=== PATIENT | female | born 1960 ===

== ENCOUNTER 2018-03-26 08:46 | Inpatient (IN) | payer BC, OTHER ==
[~2018-03-26] VITALS: Ht 172.7 cm; Wt 79.0 kg
[~2018-03-26 08:46] MED LIST: BACITRACIN 50,000 UNIT ONE; BUPIVACAINE/PF-EPI 0.5% 1:200K ONE; CETI10TA24 PO; DRON5CAP PO; DULO30CA2 PO; ERGO500017 PO; FURO20TA3 PO; GABA300C10 PO; LEVO75TA5 PO; LOSA100T14 PO; MELO15TA24 PO; OMEP20TA62 PO; SPIR25TA5 PO; THROMBIN 5,000 UNIT VIAL TP ONE; TOPI100T8 PO; VANCOMYCIN 1,000 MG ONE
[2018-03-26] MEDS ORDERED: LACTATED RINGERS 1,000 ML IV SCH (09:53)
[2018-03-26] MEDS ORDERED: OXYC-307 PO (09:55)
[2018-03-26] MEDS ORDERED: LIDOCAINE-MPF 1%, 2ML INFIL ONE (10:00)
[2018-03-26 10:27] VITALS: BP 138/88
[2018-03-26] MEDS ORDERED: FENTANYL PF 100 MCG/2ML ONE ×3 (10:44→15:48)
[2018-03-26] MEDS ORDERED: MIDAZOLAM 1 MG/ML, 2ML ONE (10:45)
[2018-03-26] MEDS ORDERED: PROPOFOL 10 MG/ML, 20ML ONE (11:22)
[2018-03-26] MEDS ORDERED: CEFAZOLIN 1,000 MG ONE (11:22)
[2018-03-26] MEDS ORDERED: SUGAMMADEX 200 MG/2 ML IVPush ONE ×2 (11:22→12:00)
[2018-03-26] MEDS ORDERED: ONDANSETRON 2MG/ML, 2ML ONE (11:22)
[2018-03-26] MEDS ORDERED: DEXAMETHASONE 4 MG/ML, 1ML ONE (11:22)
[2018-03-26] MEDS ORDERED: METOCLOPRAMIDE 5 MG/ML, 2ML ONE (11:22)
[2018-03-26] MEDS ORDERED: ROCURONIUM 10MG/ML,5ML ONE (11:22)
[2018-03-26] MEDS ORDERED: VANCOMYCIN 1,000 MG ONE ×2 (13:04→13:55)
[2018-03-26] MEDS ORDERED: LIDOCAINE 1%-EPI 1:100K, 30ML ONE (15:03)
[2018-03-26] MEDS ORDERED: OXYcodone 5 MG/5 ML ORAL.SOL UDC ONE (15:48)
[2018-03-26] MEDS ORDERED: HYDROmorphone 2 MG/ML, 1ML ONE (15:48)
[2018-03-26] MEDS: FENTANYL PF 100 MCG/2ML IV PRN ×2 (15:55→16:08)
[2018-03-26] MEDS: HYDROmorphone 1 MG/ML, 1ML IV PRN ×2 (15:56→16:15)
[2018-03-26] MEDS ORDERED: MIDAZOLAM 1 MG/ML, 2ML IV PRN ×2 (16:00→18:00)
[2018-03-26] MEDS ORDERED: ONDANSETRON 2MG/ML, 2ML IVPush PRN ×2 (16:00→18:00)
[2018-03-26] MEDS ORDERED: LABETALOL 5MG/ML, 20ML IV PRN ×3 (16:00→18:00)
[2018-03-26] MEDS ORDERED: OXYcodone 5 MG/5 ML ORAL.SOL UDC PO PRN ×3 (16:00→18:00)
[2018-03-26] MEDS ORDERED: MEPERIDINE/PF 25MG/0.5ML IVPush PRN ×3 (16:00→18:00)
[2018-03-26] MEDS ORDERED: DIAZEPAM 5 MG/ML, 10ML VIAL IV PRN (16:30)
[2018-03-26] MEDS ORDERED: DIAZEPAM 5 MG/ML, 2ML IV PRN ×2 (16:30→18:00)
[2018-03-26] MEDS ORDERED: hydrALAzine 20 MG/ML, 1ML ONE (16:57)
[2018-03-26] MEDS ORDERED: hydrALAzine 20 MG/ML, 1ML IV PRN (17:00)
[2018-03-26] MEDS ORDERED: MEPERIDINE/PF 25MG/ML,1ML ONE (17:07)
[2018-03-26] MEDS ORDERED: FENTANYL PF 100 MCG/2ML IV PRN ×2 (18:00)
[2018-03-26] MEDS ORDERED: HYDROmorphone 1 MG/ML, 1ML IV PRN ×2 (18:00)
[2018-03-26] MEDS ORDERED: MAGNESIUM HYDROXIDE 8%, 30ML UDC PO PRN (18:00)
[2018-03-26] MEDS ORDERED: ONDANSETRON 2MG/ML, 2ML IV PRN (18:00)
[2018-03-26] MEDS ORDERED: BISACODYL 10 MG SUPP PR PRN (18:00)
[2018-03-26] MEDS ORDERED: PROMETHAZINE 25 MG/ML, 1ML IM PRN (18:00)
[2018-03-26] MEDS ORDERED: morphine SULFATE 10 MG/ML, 1ML IV PRN (18:00)
[2018-03-26] MEDS: D5%-0.9% NACL+KCL 20MEQ 1,000 ML IV SCH (18:12)
[2018-03-26] MEDS: OMEPRAZOLE 20 MG CAPSULE.DR PO SCH (18:12)
[2018-03-26 18:39] VITALS: BP 137/84
[2018-03-26] MEDS: SENNA/DOCUSATE TABLET PO SCH (20:49)
[2018-03-26] MEDS: LOSARTAN 50MG TABLET PO SCH (20:49)
[2018-03-26] MEDS: GABAPENTIN 400 MG CAPSULE PO SCH (20:49)
[2018-03-26] MEDS: TOPIRAMATE 100 MG TABLET PO SCH (20:49)
[2018-03-26] MEDS: HYDROcodone/APAP 5/325 TABLET PO PRN (22:54)
[2018-03-26 23:09] VITALS: BP 107/77
[2018-03-26] MEDS: CEFAZOLIN PMX 1GM/50ML 50 ML IVPB SCH (23:33)
[2018-03-27 03:58] VITALS: BP 97/57
[2018-03-27] MEDS: D5%-0.9% NACL+KCL 20MEQ 1,000 ML IV SCH ×2 (04:15→14:00)
[2018-03-27] MEDS: DIAZEPAM 5 MG TABLET PO PRN ×2 (04:15→17:32)
[2018-03-27] MEDS: LEVOTHYROXINE 75 MCG TABLET PO SCH (05:35)
[2018-03-27] MEDS: GABAPENTIN 400 MG CAPSULE PO SCH ×4 (05:36→20:08)
[2018-03-27 05:42] LABS: BASOPHILS # (AUTO) 0.03 x10^3/uL (0-0.1); BASOPHILS % (AUTO) 0 % (0-1); EOSINOPHILS % (AUTO) 0 % (1-7); LYMPHOCYTES # (AUTO) 1.55 x10^3/uL (1-3.4); LYMPHOCYTES % (AUTO) 17 % (22-44); MD NO; MEAN CORPUSCULAR HEMOGLOBIN 29.9 pg (27.0-34.8); MEAN CORPUSCULAR HGB CONC 33.3 g/dL (32.4-35.8); MEAN CORPUSCULAR VOLUME 89.8 fL (80-100); MEAN PLATELET VOLUME 9.6 fL (7.4-10.4); MONOCYTES # (AUTO) 0.63 x10^3/uL (0.2-0.8); MONOCYTES % (AUTO) 7 % (2-9); NEUTROPHILS # (AUTO) 7.01 x10^3/uL (1.8-6.8); NEUTROPHILS % (AUTO) 76 % (42-75); PLATELET COUNT 273 x10^3/uL (130-400); RED BLOOD COUNT 3.98 x10^6/uL (3.82-5.3); RED CELL DISTRIBUTION WIDTH 13.7 % (9.6-15.2)
[2018-03-27 05:53] LABS: ANION GAP 7 mmol/L (5-15); CALCIUM 8.7 mg/dL (8.5-10.1); CHLORIDE 114 mmol/L (98-107)
[2018-03-27 05:55] LABS: CREATININE 0.72 mg/dL (0.55-1.02)
[2018-03-27 07:19] VITALS: BP 129/73
[2018-03-27] MEDS: DULOXETINE 30 MG CAPSULE.DR PO SCH (07:26)
[2018-03-27] MEDS: TOPIRAMATE 100 MG TABLET PO SCH ×2 (07:26→20:09)
[2018-03-27] MEDS: FUROSEMIDE 40 MG TABLET PO SCH (07:26)
[2018-03-27] MEDS: SENNA/DOCUSATE TABLET PO SCH ×2 (07:26→20:09)
[2018-03-27] MEDS: SPIRONOLACTONE 25 MG TABLET PO SCH (07:26)
[2018-03-27] MEDS: CEFAZOLIN PMX 1GM/50ML 50 ML IVPB SCH (07:26)
[2018-03-27] MEDS: OMEPRAZOLE 20 MG CAPSULE.DR PO SCH ×2 (07:26→17:05)
[2018-03-27] MEDS: OXYcodone/APAP 5/325MG TABLET PO PRN (08:09)
[2018-03-27 12:59] VITALS: BP 122/84
[2018-03-27] MEDS: HYDROcodone/APAP 5/325 TABLET PO PRN ×2 (15:18→20:10)
[2018-03-27 18:49] VITALS: BP 119/71
[2018-03-27] MEDS ORDERED: TOPIRAMATE 25 MG TABLET ONE ×2 (20:02→20:04)
[2018-03-27] MEDS: LOSARTAN 50MG TABLET PO SCH (20:10)
[2018-03-28] MEDS: HYDROcodone/APAP 5/325 TABLET PO PRN ×6 (00:01→20:16)
[2018-03-28] MEDS: DIAZEPAM 5 MG TABLET PO PRN ×4 (00:02→18:10)
[2018-03-28 02:36] VITALS: BP 113/73
[2018-03-28] MEDS: GABAPENTIN 400 MG CAPSULE PO SCH ×4 (04:03→20:16)
[2018-03-28 06:09] LABS: BASOPHILS # (AUTO) 0.03 x10^3/uL (0-0.1); BASOPHILS % (AUTO) 0 % (0-1); EOSINOPHILS # (AUTO) 0.03 x10^3/uL (0-0.4); EOSINOPHILS % (AUTO) 0 % (1-7); LYMPHOCYTES # (AUTO) 1.97 x10^3/uL (1-3.4); LYMPHOCYTES % (AUTO) 27 % (22-44); MD NO; MEAN CORPUSCULAR HEMOGLOBIN 29.5 pg (27.0-34.8); MEAN CORPUSCULAR HGB CONC 33.1 g/dL (32.4-35.8); MEAN CORPUSCULAR VOLUME 89.1 fL (80-100); MEAN PLATELET VOLUME 9.6 fL (7.4-10.4); MONOCYTES # (AUTO) 0.64 x10^3/uL (0.2-0.8); MONOCYTES % (AUTO) 9 % (2-9); NEUTROPHILS # (AUTO) 4.51 x10^3/uL (1.8-6.8); NEUTROPHILS % (AUTO) 63 % (42-75); PLATELET COUNT 254 x10^3/uL (130-400); RED BLOOD COUNT 4.06 x10^6/uL (3.82-5.3); RED CELL DISTRIBUTION WIDTH 13.9 % (9.6-15.2)
[2018-03-28 06:19] LABS: CALCIUM 8.6 mg/dL (8.5-10.1); CHLORIDE 110 mmol/L (98-107)
[2018-03-28] MEDS: LEVOTHYROXINE 75 MCG TABLET PO SCH (06:20)
[2018-03-28 06:22] LABS: ANION GAP 8 mmol/L (5-15); CREATININE 0.62 mg/dL (0.55-1.02)
[2018-03-28 07:30] VITALS: BP 115/72
[2018-03-28] MEDS: OMEPRAZOLE 20 MG CAPSULE.DR PO SCH ×2 (07:36→16:16)
[2018-03-28] MEDS: DULOXETINE 30 MG CAPSULE.DR PO SCH (08:27)
[2018-03-28] MEDS: FUROSEMIDE 40 MG TABLET PO SCH (08:27)
[2018-03-28] MEDS: TOPIRAMATE 100 MG TABLET PO SCH ×2 (08:27→20:17)
[2018-03-28] MEDS: SENNA/DOCUSATE TABLET PO SCH ×2 (08:27→20:16)
[2018-03-28] MEDS: SPIRONOLACTONE 25 MG TABLET PO SCH (08:27)
[2018-03-28] MEDS: D5%-0.9% NACL+KCL 20MEQ 1,000 ML IV SCH ×3 (09:39→20:00)
[2018-03-28] MEDS ORDERED: ONDANSETRON ODT 4 MG ONE (10:56)
[2018-03-28] MEDS: ONDANSETRON ODT 4 MG PO PRN (10:57)
[2018-03-28 12:42] VITALS: BP 105/65
[2018-03-28] MEDS ORDERED: SUMATRIPTAN 25 MG TABLET PO PRN (18:00)
[2018-03-28 18:56] VITALS: BP 103/72
[2018-03-28] MEDS: LOSARTAN 50MG TABLET PO SCH (20:17)
[2018-03-29] MEDS: DIAZEPAM 5 MG TABLET PO PRN ×4 (00:47→20:29)
[2018-03-29] MEDS: HYDROcodone/APAP 5/325 TABLET PO PRN ×5 (00:48→20:29)
[2018-03-29 01:01] VITALS: BP 111/68
[2018-03-29] MEDS: D5%-0.9% NACL+KCL 20MEQ 1,000 ML IV SCH ×2 (05:39→14:30)
[2018-03-29] MEDS: LEVOTHYROXINE 75 MCG TABLET PO SCH (05:42)
[2018-03-29] MEDS: GABAPENTIN 400 MG CAPSULE PO SCH ×4 (05:42→20:29)
[2018-03-29] MEDS: OMEPRAZOLE 20 MG CAPSULE.DR PO SCH ×2 (07:27→15:53)
[2018-03-29 07:34] VITALS: BP 99/63
[2018-03-29] MEDS: SPIRONOLACTONE 25 MG TABLET PO SCH (09:17)
[2018-03-29] MEDS: DULOXETINE 30 MG CAPSULE.DR PO SCH (09:17)
[2018-03-29] MEDS: TOPIRAMATE 100 MG TABLET PO SCH ×2 (09:17→20:29)
[2018-03-29] MEDS: FUROSEMIDE 40 MG TABLET PO SCH (09:17)
[2018-03-29] MEDS: SENNA/DOCUSATE TABLET PO SCH ×2 (09:17→20:29)
[2018-03-29 14:27] VITALS: BP 110/64
[2018-03-29 19:37] VITALS: BP 124/83
[2018-03-29] MEDS: LOSARTAN 50MG TABLET PO SCH (20:29)
[2018-03-30 01:53] VITALS: BP 102/67
[2018-03-30] MEDS: D5%-0.9% NACL+KCL 20MEQ 1,000 ML IV SCH ×3 (02:00→22:00)
[2018-03-30] MEDS: HYDROcodone/APAP 5/325 TABLET PO PRN ×3 (02:11→11:06)
[2018-03-30] MEDS: DIAZEPAM 5 MG TABLET PO PRN ×3 (02:11→20:18)
[2018-03-30] MEDS: GABAPENTIN 400 MG CAPSULE PO SCH ×4 (06:25→20:17)
[2018-03-30] MEDS: LEVOTHYROXINE 75 MCG TABLET PO SCH (06:25)
[2018-03-30 07:50] VITALS: BP 103/65
[2018-03-30] MEDS ORDERED: TOPIRAMATE 25 MG TABLET ONE (08:32)
[2018-03-30] MEDS: DULOXETINE 30 MG CAPSULE.DR PO SCH (08:34)
[2018-03-30] MEDS: SPIRONOLACTONE 25 MG TABLET PO SCH (08:35)
[2018-03-30] MEDS: FUROSEMIDE 40 MG TABLET PO SCH (08:35)
[2018-03-30] MEDS: TOPIRAMATE 100 MG TABLET PO SCH ×2 (08:36→20:17)
[2018-03-30] MEDS: OMEPRAZOLE 20 MG CAPSULE.DR PO SCH ×2 (08:36→16:24)
[2018-03-30] MEDS: SENNA/DOCUSATE TABLET PO SCH ×2 (08:36→20:18)
[2018-03-30 15:57] VITALS: BP 115/71
[2018-03-30] MEDS: OXYcodone/APAP 5/325MG TABLET PO PRN ×2 (17:44→23:49)
[2018-03-30] MEDS: ONDANSETRON ODT 4 MG PO PRN (17:44)
[2018-03-30] MEDS: LOSARTAN 50MG TABLET PO SCH (20:17)
[2018-03-30 20:31] VITALS: BP 117/71
[2018-03-31 01:56] VITALS: BP 115/71
[2018-03-31] MEDS: DIAZEPAM 5 MG TABLET PO PRN ×2 (05:39→14:35)
[2018-03-31] MEDS: GABAPENTIN 400 MG CAPSULE PO SCH ×4 (05:39→19:47)
[2018-03-31] MEDS: LEVOTHYROXINE 75 MCG TABLET PO SCH (05:39)
[2018-03-31] MEDS: OMEPRAZOLE 20 MG CAPSULE.DR PO SCH ×2 (07:14→16:11)
[2018-03-31] MEDS: OXYcodone/APAP 5/325MG TABLET PO PRN ×3 (07:14→19:48)
[2018-03-31] MEDS: D5%-0.9% NACL+KCL 20MEQ 1,000 ML IV SCH ×2 (07:54→17:08)
[2018-03-31 07:58] VITALS: BP 109/71
[2018-03-31] MEDS: SENNA/DOCUSATE TABLET PO SCH ×2 (09:00→19:48)
[2018-03-31] MEDS ORDERED: TOPIRAMATE 25 MG TABLET ONE (09:14)
[2018-03-31] MEDS: DULOXETINE 30 MG CAPSULE.DR PO SCH (09:16)
[2018-03-31] MEDS: SPIRONOLACTONE 25 MG TABLET PO SCH (09:16)
[2018-03-31] MEDS: FUROSEMIDE 40 MG TABLET PO SCH (09:17)
[2018-03-31] MEDS: TOPIRAMATE 100 MG TABLET PO SCH ×2 (09:17→19:47)
[2018-03-31 14:55] VITALS: BP 119/75
[2018-03-31] MEDS: LOSARTAN 50MG TABLET PO SCH (19:47)
[2018-03-31 20:38] VITALS: BP 113/64
[2018-04-01] MEDS: OXYcodone/APAP 5/325MG TABLET PO PRN ×4 (00:20→12:35)
[2018-04-01 01:51] VITALS: BP 116/73
[2018-04-01] MEDS: D5%-0.9% NACL+KCL 20MEQ 1,000 ML IV SCH (04:00)
[2018-04-01] MEDS: GABAPENTIN 400 MG CAPSULE PO SCH ×2 (05:37→11:20)
[2018-04-01] MEDS: LEVOTHYROXINE 75 MCG TABLET PO SCH (05:37)
[2018-04-01] MEDS: DIAZEPAM 5 MG TABLET PO PRN ×2 (06:23→12:35)
[2018-04-01] MEDS: DULOXETINE 30 MG CAPSULE.DR PO SCH (08:32)
[2018-04-01] MEDS: FUROSEMIDE 40 MG TABLET PO SCH (08:32)
[2018-04-01] MEDS: TOPIRAMATE 100 MG TABLET PO SCH (08:33)
[2018-04-01] MEDS: SPIRONOLACTONE 25 MG TABLET PO SCH (08:33)
[2018-04-01] MEDS: OMEPRAZOLE 20 MG CAPSULE.DR PO SCH (08:38)
[2018-04-01] MEDS: SENNA/DOCUSATE TABLET PO SCH (08:38)
[2018-04-01 10:22] VITALS: BP 127/85
[2018-04-01 11:30] VITALS: BP 102/73
[2018-04-01] MEDS ORDERED: DIAZ5ORA PO (11:41)
== END 2018-04-01 13:10 | disposition home or self-care (01) | DRG 460 ==
LOC: ORIP 08:46 → 4NOR 17:27
PROVIDERS: ADMIT Orthopaedic Surgery Orthopaedic Surgery of the Spine; ATTEND Orthopaedic Surgery Orthopaedic Surgery of the Spine
PROC: 0SR20JZ Replacement of Lumbar Vertebral Disc with Synthetic Substitute, Open Approach (ICD-10-PCS; 2018-03-26)
PROC: 01NB0ZZ Release Lumbar Nerve, Open Approach (ICD-10-PCS; 2018-03-26)
PROC: 0SH004Z Insertion of Internal Fixation Device into Lumbar Vertebral Joint, Open Approach (ICD-10-PCS; 2018-03-26)
PROC: 4A11X4G Monitoring of Peripheral Nervous Electrical Activity, Intraoperative, External Approach (ICD-10-PCS; 2018-03-26)
PROC: 0SG00A0 Fusion of Lumbar Vertebral Joint with Interbody Fusion Device, Anterior Approach, Anterior Column, Open Approach (ICD-10-PCS; principal; 2018-03-26 11:00)
DX: M48.061 Spinal stenosis, lumbar region without neurogenic claudication (principal); M51.16 Intervertebral disc disorders with radiculopathy, lumbar region; M43.16 Spondylolisthesis, lumbar region; I10 Essential (primary) hypertension; K21.9 Gastro-esophageal reflux disease without esophagitis; E03.9 Hypothyroidism, unspecified; G43.909 Migraine, unspecified, not intractable, without status migrainosus; Z79.899 Other long term (current) drug therapy; Z88.2 Allergy status to sulfonamides; Z88.8 Allergy status to other drugs, medicaments and biological substances
CPT/HCPCS: 36415; 72100; 72110; 80048; 85025; C1713; C1767; G0378; J0690; J1100; J1170; J2175; J2250; J2405; J2704; J3010; J3360; J3370; J3490; Q0162; C1762; J2270; J2765; J3480; J7120